=== PATIENT | male | born 1980 | race Caucasian/White ===

== ENCOUNTER → 2019-08-27 | Outpatient (CLI) | payer BC, SELFPAY ==
[2019-08-18 09:36] VITALS: BMI 30.2
== END | disposition home or self-care (01) ==
LOC: SL 12:09
PROVIDERS: PCP Family Medicine; Visit Provider Internal Medicine Critical Care Medicine
DX: G47.33 Obstructive sleep apnea (adult) (pediatric) (principal)

== ENCOUNTER → 2020-12-29 | Outpatient (CLI) | payer BC, SELFPAY ==
--- NOTE | 2020-12-29 09:00 | VAS_PTH ---
PATIENT: MISTY CHAMBERS Jr. LOC: [facility] U#:[id number] AGE/SX: 40/M ROOM: RE12/29/[address]: Dr. Sukhdeep Davison MD : [id number] BED: DIS: 12/29/2020 SPEC #: [id number] RECD: 12/29/20 10:23 STATUS: ALEX REQ #: [id number] MATI: 12/29/20 09:[address]: Sukhdeep Davison DEPT: SURGICAL PATHOLOGY RECD BY: Nora Sears ENTERED: 12/29/20 11:16 SP TYPE: VAS OTHR DR: Dr. Adi Petersen MD Tissues: A - Vas deferens, NOS B - Vas deferens, NOS Procedures: Surgery Specimen Level II HEADER OPERATION: Bilateral partial vasectomy PRE-OP DIAGNOSIS: Sterilization TISSUE SUBMITTED: A ? Right vas deferens, B ? Left vas deferens MICROSCOPIC DIAGNOSIS A. Right vas deferens, partial vasectomy: Completely transected segment of vas deferens, no pathologic diagnosis. B. Left vas deferens, partial vasectomy: Completely transected segment of vas deferens, no pathologic diagnosis. MICHELLE:charlie 12/30/2020 MICROSCOPIC DESCRIPTION Slides are reviewed. GROSS DESCRIPTION A - Received is one container designated right vas deferens. The specimen consists of a tubular segment of suggs soft tissue measuring 1.2 cm in length and 0.2 cm in diameter. The specimen is sectioned and submitted entirely in one cassette. B - Received is one container designated left vas deferens. The specimen consists of a tubular segment of suggs soft tissue measuring 1.3 cm in length and 0.2 cm in diameter. The specimen is sectioned and submitted entirely in one cassette. / MICHELLE:charlie 12/29/20 TC:4 [facility]: [id number] [phone]
== END | disposition home or self-care (01) ==
PROVIDERS: PCP Family Medicine; Referring Provider Surgery; Visit Provider Surgery
DX: Z30.2 Encounter for sterilization (principal)
CPT/HCPCS: 88302

== ENCOUNTER 2021-03-13 15:43 | Outpatient (CLI) | payer BC, SELFPAY ==
[2021-03-14 14:20] LABS: Semen Analysis Post Vas REVIEWED
== END 2021-03-13 23:59 | disposition home or self-care (01) ==
PROVIDERS: PCP Family Medicine; Visit Provider Surgery
DX: Z30.2 Encounter for sterilization (principal)
CPT/HCPCS: 89321

== ENCOUNTER 2021-06-21 16:22 | Outpatient (CLI) | payer BC, SELFPAY ==
[2021-06-22 05:21] LABS: Semen Analysis Post Vas ABSENT
[2021-06-22 11:57] LABS: Pathologist Review Reviewed
== END 2021-06-21 23:59 | disposition home or self-care (01) ==
LOC: LABSPEC 16:24
PROVIDERS: PCP Family Medicine; Visit Provider Surgery
DX: Z30.2 Encounter for sterilization (principal)
CPT/HCPCS: 89321